=== PATIENT | female | born 1945 | race Caucasian/White ===

== ENCOUNTER → 2017-03-26 | Outpatient (CLI) | payer MEDICARE, BC ==
[~2017-03-26] MED LIST: GADOBUTROL 10 MMOL/10 ML PFS ONE
== END | disposition home or self-care (01) ==
LOC: CFH 10:21
PROVIDERS: ATTEND Psychiatry & Neurology Neurology
DX: G45.3 Amaurosis fugax (principal); G31.89 Other specified degenerative diseases of nervous system
CPT/HCPCS: 70553; A9585